=== PATIENT | female | born 1955 | race Two or more races ===

== ENCOUNTER 2025-06-02 12:16 | Inpatient (IN) | payer OTHER ==
[~2025-06-02] VITALS: Ht 167.6 cm; Wt 93.9 kg
--- NOTE | 2025-06-02 12:44 | NUR ---
SE RECIBE PACIENTE ALERTA Y ORIENTADA EN COMPANIA DE PARAMEDICOS DE AMBULACIA. AL MOMENTO LOS MISMOS REFIEREN TRAER A PACIENTE POR UN TRANFER DEL DOCTOR ARETHA HAYDEN. AL MOMENTO PACIENTE SE ENCUENTRA CON TUBO NASO GASTRICO PATENTE EN FOSA NASAL DERECHA. SE OBSERVA CANALIZADA CON ANGIO #20 EN MANO DERECHA. SE UBICA EN AREA DE SECCION K Y SE CONECTA A SUCCION INTERMITENTE CON EGRESO COLOR MITCHELL GIRISH. SE MIDEN S/V Y SE MANTIENE BAJO OBSERVACION PARA CONTINUIDA DE TRATAMIENTO.
[2025-06-02] MEDS ORDERED: KETOROLAC TROMETHAMINE 30 MG VIAL IV ONE (12:45)
[2025-06-02] MEDS ORDERED: 0.9 % SODIUM CHLORIDE 1,000 ML IV SCH ×2 (12:45→14:45)
[2025-06-02] MEDS ORDERED: PIPERACILLIN/TAZOBACTAM SODIUM 3.375 GM VIAL IV ONE (12:45)
[2025-06-02] MEDS ORDERED: FAMOTIDINE/PF 20 MG/2 ML VIAL IV ONE (12:45)
--- NOTE | 2025-06-02 13:01 | NUR ---
SE ORIENTA A PACIENTE SOBRE TRATAMIENTO MEDICO, REFIERE ENTENDER. SE REALIZAN MUESTRAS DE LABORATORIO BAJO MEDIDAS ASEPTICAS. SE ADMINISTRAN MEDICAMENTOS QUIANA ORDEN MEDICA. PACIENTE MANEJADA POR .
[2025-06-02 13:16] LABS: BASO % 0.2 % (0.1-1.2); EOS # 0.03 (0.04-0.54); EOS % 0.2 % (0.7-7.0); LYMPH # 1.71 (1.18-3.74); LYMPH % 12.0 % (19.3-53.1); MEAN PLATELET VOLUME 9.00 fl (9.4-12.4); MONO # 1.02 (0.24-0.82); MONO % 7.2 % (4.7-12.5); NEUT # 11.38 (1.56-6.13); NEUT % 80.0 % (34.0-71.1); RED CELL DISTRIBUTION WIDTH 16.1 % (11.6-14.4)
[2025-06-02 13:19] LABS: ERYTHROCYTE SEDIMENTATION RATE 108 mm/hr (0-30)
[2025-06-02 13:41] LABS: INR 1.07
[2025-06-02 13:44] LABS: ALT/SGPT 20.0 U/L (12-78); AST/SGOT 18.0 U/L (15-37); BILIRUBIN TOTAL 0.86 mg/dL (0.3-1.2); BUN CREA RATIO 21.0 (7.0-25.0); CREATININE SERUM 1.57 mg/dL (0.55-1.02); GFR 32.48; GLOBULINA 4.8 G/DL (2.4-3.5); GLUCOSE FASTING 85.0 mg/dL (65-100); OSMOLALITY SERUM 286.0 MOSM/KG (275-295)
[2025-06-02] MEDS ORDERED: PIPERACILLIN/TAZOBACTAM SODIUM 3.375 GM in DEXTROSE 5 % IN WATER 100 ML IV SCH (14:41)
[2025-06-02] MEDS ORDERED: ACETAMINOPHEN 500 MG GEL..CAP PO PRN (14:45)
[2025-06-02] MEDS ORDERED: DEXTROSE 50 % IN WATER 0.5 G/ML DISP.SYRIN IV PRN (14:45)
[2025-06-02] MEDS ORDERED: MORPHINE SULFATE 2 MG/ML SYRINGE IV PRN (14:45)
[2025-06-02] MEDS ORDERED: ENALAPRILAT DIHYDRATE 1.25 MG/ML VIAL IV PRN (14:45)
[2025-06-02] MEDS ORDERED: INSULIN LISPRO 1,000 UNIT/10 ML UNITS SUBCUTANEO PRN (14:45)
[2025-06-02] MEDS ORDERED: ONDANSETRON HCL 4 MG in 0.9 % SODIUM CHLORIDE 50 ML IV PRN (14:45)
[2025-06-02 18:43] VITALS: BP 115/68
[2025-06-02 18:56] LABS: URINE APPEARANCE Clear; URINE BILIRRUBIN Negative (NEGATIVE); URINE BLOOD Negative; URINE COLOR Dark Yellow; URINE GLUCOSE Negative (NEGATIVE); URINE KETONE Trace (NEGATIVE); URINE LEUKOCYTE Negative; URINE NITRATE Negative; URINE PROTEIN 30 (NEGATIVE); URINE UROBILINOGEN 0.2 E.U./dl
[2025-06-02 18:59] LABS: URINE BACTERIA 241.3 uL (0.0-1933); URINE EPITHELIAL CELLS 15.9 uL (0.0-38.8); URINE RBC 16.0 uL (0.0-20.8); URINE WBC 26.0 uL (0.0-23.2)
[2025-06-02 19:21] LABS: URINE CAST 0.14 uL (0.0-1.40)
[2025-06-03] VITALS: BP 107/72; O2SAT 96
[2025-06-03 08:00] VITALS: BP 94/55; O2SAT 96
[2025-06-03 16:00] VITALS: BP 109/65; O2SAT 95
[2025-06-04 00:30] VITALS: BP 112/65; O2SAT 96
[2025-06-04 08:00] VITALS: BP 130/70; O2SAT 96
[2025-06-04 15:07] LABS: BASO % 0.1 % (0.1-1.2); EOS # 0.27 (0.04-0.54); EOS % 3.3 % (0.7-7.0); LYMPH # 0.89 (1.18-3.74); LYMPH % 10.8 % (19.3-53.1); MEAN PLATELET VOLUME 9.50 fl (9.4-12.4); MONO # 0.46 (0.24-0.82); MONO % 5.6 % (4.7-12.5); NEUT # 6.56 (1.56-6.13); NEUT % 79.6 % (34.0-71.1); RED CELL DISTRIBUTION WIDTH 16.1 % (11.6-14.4)
[2025-06-04 15:25] LABS: BUN CREA RATIO 17.0 (7.0-25.0); CREATININE SERUM 1.25 mg/dL (0.55-1.02); GFR 42.25; GLUCOSE FASTING 86.0 mg/dL (65-100); OSMOLALITY SERUM 293.0 MOSM/KG (275-295)
[2025-06-04 16:00] VITALS: BP 113/65; O2SAT 98
[2025-06-04] MEDS ORDERED: PIPERACILLIN/TAZOBACTAM SODIUM 3.375 GM VIAL IV ONE (17:26)
[2025-06-04] MEDS ORDERED: SODIUM CHLORIDE 0.45 % 1,000 ML IV SCH (17:30)
[2025-06-05 08:36] VITALS: BP 153/72; O2SAT 96
[2025-06-05 16:00] VITALS: BP 163/70; O2SAT 96
[2025-06-06 01:01] VITALS: BP 148/64; O2SAT 95
[2025-06-06 08:00] VITALS: BP 149/77; O2SAT 95
[2025-06-06 14:00] VITALS: BP 166/96; O2SAT 99
[2025-06-06 14:56] LABS: ALT/SGPT 42.0 U/L (12-78); AST/SGOT 41.0 U/L (15-37); BILIRUBIN TOTAL 1.11 mg/dL (0.3-1.2); BILIRUBIN,CONJUGATED 0.35 mg/dL (0.0-0.2); BUN CREA RATIO 10.0 (7.0-25.0); CREATININE SERUM 1.07 mg/dL (0.55-1.02); GFR 50.55; GLOBULINA 3.8 G/DL (2.4-3.5); GLUCOSE FASTING 90.0 mg/dL (65-100); OSMOLALITY SERUM 278.0 MOSM/KG (275-295)
== END 2025-06-06 19:00 | disposition home or self-care (01) | DRG 445 ==
LOC: ER 12:16 → SURG 16:30
PROVIDERS: Student in an Organized Health Care Education/Training Program; ADMIT Student in an Organized Health Care Education/Training Program; ATTEND Student in an Organized Health Care Education/Training Program
PROC: BF37YZZ Magnetic Resonance Imaging (MRI) of Pancreas using Other Contrast (ICD-10-PCS; principal; 2025-06-05)
DX: K83.8 Other specified diseases of biliary tract (principal); N17.9 Acute kidney failure, unspecified; I10 Essential (primary) hypertension; E03.9 Hypothyroidism, unspecified; E11.9 Type 2 diabetes mellitus without complications; Z79.4 Long term (current) use of insulin; K80.20 Calculus of gallbladder without cholecystitis without obstruction